=== PATIENT | female | born 2000 | race Caucasian/White ===

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

== ENCOUNTER 2023-12-30 13:36 | Outpatient (CLI) | payer BC, SELFPAY ==
--- NOTE | 2023-12-30 13:37 | US_ITS ---
PROCEDURE: US OB TRANSVAGINAL CLINICAL INDICATION: 5w3d, abdominal cramping COMPARISON: No exams were available for comparison FINDINGS: Transvaginal sonographic images of the pelvis were obtained. From her last menstrual period she is 5weeks 3days. An intrauterine gestational sac is present but it is too early to see a pole. This correlates to a gestational age of 5weeks 2days. heart tones are absent due to early gestational age. Yolk sac is noted. The yolk sac measures 2.1 mmmm. The right ovary is seen and appears normal. The left ovary is seen and appears normal. There is a corpus luteum in the left ovary. There is a moderate amount of fluid in the cul-de-sac. IMPRESSION: 1. There is an early gestational sac and small yolk sac seen within the uterine cavity. 2. No fetus or heart rate activity is seen yet. 3. Both ovaries are seen and appear normal. The left ovary has a corpus luteum. 4. There is moderate fluid in the cul-de-sac. 5. Suggest repeat ultrasound in 1 week to confirm viability. Dictated by: Brian Rodriguez MD 12/30/2023 18:17 Brian Rodriguez MD in [facility] 12/30/2023 18:17
== END 2023-12-30 23:59 | disposition home or self-care (01) ==
LOC: RAD 13:37
PROVIDERS: PCP Family Medicine; Visit Provider Nurse Practitioner
DX: O26.891 Other specified pregnancy related conditions, first trimester (principal); R10.9 Unspecified abdominal pain; Z3A.01 Less than 8 weeks gestation of pregnancy
CPT/HCPCS: 76817

== ENCOUNTER 2024-01-09 14:14 | Outpatient (CLI) | payer BC, SELFPAY ==
--- NOTE | 2024-01-09 14:15 | US_ITS ---
PROCEDURE: US OB TRANSVAGINAL CLINICAL INDICATION: , abdominal cramping, followup COMPARISON: US US OB TRANSVAGINAL from 12/30/2023 FINDINGS: Transvaginal sonographic images of the pelvis were obtained. From her last menstrual period she is 6weeks 6days. An intrauterine gestational sac is present with a pole with a crown-rump length of 0.64cm This correlates to a gestational age of 6weeks 4days. ZOILA will remain 08/28/2024 heart tones are present with an FHR of 117bpm. Yolk sac is noted. The yolk sac measures 4.9 mm. The right ovary is seen and appears normal. The left ovary is seen and appears normal. There is a corpus luteum on the left ovary. There is moderate fluid in the cul-de-sac. IMPRESSION: 1. Viable fetus within the uterine cavity. There is heart rate activity. 2. Fetus measures 6 weeks 4 days and the ZOILA will remain 08/28/2024. 3. Right ovary appears normal. Left ovary has a corpus luteum. 4. There is moderate fluid in the cul-de-sac but subjectively less than her last ultrasound 10 days ago. Dictated by: Brian Rodriguez MD 01/10/2024 06:34 Brian Rodriguez MD in [facility] 01/10/2024 06:34
== END 2024-01-09 23:59 | disposition home or self-care (01) ==
LOC: RAD 14:15
PROVIDERS: PCP Nurse Practitioner; Visit Provider Nurse Practitioner
DX: Z34.90 Encounter for supervision of normal pregnancy, unspecified, unspecified trimester (principal); R10.9 Unspecified abdominal pain
CPT/HCPCS: 76817

== ENCOUNTER 2024-01-29 17:25 | Outpatient (CLI) | payer BC, SELFPAY ==
[2024-01-30 21:25] LABS: Neisseria gonorrhoeae, NAA Negative (Negative)
== END 2024-01-29 23:59 | disposition home or self-care (01) ==
LOC: LAB.DROPOF 17:26
PROVIDERS: PCP Obstetrics & Gynecology; Visit Provider Obstetrics & Gynecology
DX: Z34.81 Encounter for supervision of other normal pregnancy, first trimester (principal); Z34.90 Encounter for supervision of normal pregnancy, unspecified, unspecified trimester
CPT/HCPCS: 87086; 87491; 87591